=== PATIENT | female | born 1950 | race Asian ===

== ENCOUNTER 2018-08-22 14:00 | Observation (INO) | payer BC, MEDICARE, OTHER ==
[2018-08-22] MEDS: NITROGLYCERIN 2% 1 GM OINT PKT TD (17:48)
[2018-08-22 18:02] LABS: ADD MAN DIFF? NO
[2018-08-22 18:20] LABS: BASOPHIL # 0.1 10^3/ul (0.0-0.1); BASOPHILS % 0.9 % (0.0-2.0); EOSINOPHILS # 0.1 10^3/ul (0.0-0.5); EOSINOPHILS % 2.2 % (0.0-7.0); HEMATOCRIT 43.6 % (37.0-47.0); HEMOGLOBIN 14.6 g/dl (12.0-16.0); LYMPHOCYTES # 2.3 10^3/ul (0.8-2.9); LYMPHOCYTES % 39.1 % (15.0-51.0); MEAN CORPUSCULAR HEMOGLOBIN 30.7 pg (29.0-33.0); MEAN CORPUSCULAR HGB CONC 33.5 g/dl (32.0-37.0); MEAN CORPUSCULAR VOLUME 91.8 fl (82.0-101.0); MEAN PLATELET VOLUME 9.9 fl (7.4-10.4); MONOCYTE # 0.4 10^3/ul (0.3-0.9); MONOCYTES % 6.7 % (0.0-11.0); NEUTROPHILS % 50.6 % (39.0-77.0); PLATELET COUNT 307 10^3/UL (140-415); RED BLOOD COUNT 4.75 10^6/ul (4.20-5.40); RED CELL DISTRIBUTION WIDTH 11.7 % (11.5-14.5)
[2018-08-22 18:20] LABS: WHITE BLOOD COUNT 5.8 10^3/ul (4.8-10.8)
[2018-08-22 18:51] LABS: ANION GAP 10 (5-13); BLOOD UREA NITROGEN 18 mg/dl (7-20); CALCIUM 9.8 mg/dl (8.4-10.2); CARBON DIOXIDE 26 mmol/L (21-31); CHLORIDE 107 mmol/L (97-110); Estimated GFR > 60 mL/min (>60); GLUCOSE 77 mg/dl (70-220); SODIUM 143 mmol/L (135-144)
[2018-08-22 19:03] LABS: TROPONIN-I < 0.012 ng/ml (0.000-0.120)
[2018-08-22] MEDS ORDERED: ACETAMINOPHEN 325 MG TAB PO ×2 (20:00→23:30)
[2018-08-22] MEDS ORDERED: ONDANSETRON 4 MG INJ IV (20:00)
[2018-08-22] MEDS ORDERED: NACL 0.9% 3 ML SYG IV (23:30)
[2018-08-22] MEDS ORDERED: NITROGLYCERIN (SL) 0.4 MG TAB SL (23:30)
[2018-08-22] MEDS ORDERED: ALBUTEROL/IPRATROPIUM (NEB) 3 ML AMP HHN (23:30)
[2018-08-23 00:29] LABS: CREATINE KINASE 53 IU/L (23-200)
[2018-08-23 00:41] LABS: CK INDEX 1.1; CK-MB 0.57 ng/ml (0.0-2.4); TROPONIN-I < 0.012 ng/ml (0.000-0.120)
[2018-08-23] MEDS ORDERED: METOPROLOL 5 MG INJ (01:08)
[2018-08-23] MEDS: HYDROCODONE/APAP (5/325) TAB PO (01:41)
[2018-08-23 06:39] LABS: ADD MAN DIFF? NO
[2018-08-23 06:46] LABS: BASOPHIL # 0.1 10^3/ul (0.0-0.1); BASOPHILS % 1.1 % (0.0-2.0); EOSINOPHILS # 0.2 10^3/ul (0.0-0.5); EOSINOPHILS % 4.1 % (0.0-7.0); HEMATOCRIT 41.5 % (37.0-47.0); LYMPHOCYTES # 1.4 10^3/ul (0.8-2.9); LYMPHOCYTES % 30.7 % (15.0-51.0); MEAN CORPUSCULAR HEMOGLOBIN 30.2 pg (29.0-33.0); MEAN CORPUSCULAR HGB CONC 33.7 g/dl (32.0-37.0); MEAN CORPUSCULAR VOLUME 89.4 fl (82.0-101.0); MONOCYTE # 0.4 10^3/ul (0.3-0.9); MONOCYTES % 8.6 % (0.0-11.0); NEUTROPHIL # 2.6 10^3/ul (1.6-7.5); NEUTROPHILS % 55.1 % (39.0-77.0); PLATELET COUNT 301 10^3/UL (140-415); RED BLOOD COUNT 4.64 10^6/ul (4.20-5.40); RED CELL DISTRIBUTION WIDTH 11.8 % (11.5-14.5)
[2018-08-23 06:46] LABS: WHITE BLOOD COUNT 4.7 10^3/ul (4.8-10.8)
[2018-08-23 07:05] LABS: ALANINE AMINOTRANSFERASE 26 IU/L (13-69); ALBUMIN 3.9 g/dl (3.3-4.9); ALBUMIN/GLOBULIN RATIO 1.39; ALKALINE PHOSPHATASE 85 IU/L (42-121); ANION GAP 8 (5-13); ASPARTATE AMINO TRANSFERASE 26 IU/L (15-46); BILIRUBIN,INDIRECT 0.4 mg/dl (0-1.1); BILIRUBIN,TOTAL 0.4 mg/dl (0.2-1.3); BLOOD UREA NITROGEN 23 mg/dl (7-20); CALCIUM 9.4 mg/dl (8.4-10.2); CARBON DIOXIDE 28 mmol/L (21-31); CHLORIDE 108 mmol/L (97-110); CHOL/HDL RATIO 3.5 RATIO; CHOLESTEROL 196 mg/dl (100-200); Estimated GFR > 60 mL/min (>60); GLUCOSE 109 mg/dl (70-220); HDL CHOLESTEROL 56 mg/dl (35-98); LDL CHOLESTEROL,CALCULATED 119 mg/dl; MAGNESIUM 2.3 mg/dl (1.7-2.5); POTASSIUM 4.6 mmol/L (3.5-5.1); SODIUM 144 mmol/L (135-144); TOTAL PROTEIN 6.7 g/dl (6.1-8.1); TRIGLYCERIDES 105 mg/dl (0-149)
[2018-08-23 07:07] LABS: CREATINE KINASE 56 IU/L (23-200)
[2018-08-23 07:15] LABS: CK INDEX 0.9; CK-MB 0.51 ng/ml (0.0-2.4); TROPONIN-I < 0.012 ng/ml (0.000-0.120)
[2018-08-23] MEDS: LEVOTHYROXINE 25 MCG TAB PO (07:55)
[2018-08-23] MEDS: ASPIRIN 81 MG TAB PO (08:27)
[2018-08-23] MEDS: AMLODIPINE 5 MG TAB PO (08:28)
[2018-08-23] MEDS: LOSARTAN 50 MG TAB PO (08:29)
[2018-08-23] MEDS: ENOXAPARIN 40 MG/0.4 ML SYG SC (09:28)
[2018-08-23] MEDS: METOPROLOL 25 MG TAB PO (10:41)
[2018-08-23] MEDS: IOHEXOL 300MG/ML 150 ML BTL (12:14)
[2018-08-23] MEDS: SOD CHLORIDE 0.9% 100 ML (12:14)
[2018-08-23] MEDS: NITROGLYCERIN AEROSOL (4.9 GM) (12:55)
[2018-08-24 06:23] LABS: ADD MAN DIFF? NO
[2018-08-24 06:33] LABS: BASOPHIL # 0.1 10^3/ul (0.0-0.1); EOSINOPHILS # 0.2 10^3/ul (0.0-0.5); EOSINOPHILS % 3.2 % (0.0-7.0); HEMATOCRIT 41.6 % (37.0-47.0); HEMOGLOBIN 14.3 g/dl (12.0-16.0); LYMPHOCYTES # 1.5 10^3/ul (0.8-2.9); MEAN CORPUSCULAR HEMOGLOBIN 30.6 pg (29.0-33.0); MEAN CORPUSCULAR HGB CONC 34.4 g/dl (32.0-37.0); MEAN CORPUSCULAR VOLUME 88.9 fl (82.0-101.0); MONOCYTE # 0.5 10^3/ul (0.3-0.9); MONOCYTES % 9.3 % (0.0-11.0); NEUTROPHIL # 2.7 10^3/ul (1.6-7.5); NEUTROPHILS % 55.1 % (39.0-77.0); PLATELET COUNT 311 10^3/UL (140-415); RED BLOOD COUNT 4.68 10^6/ul (4.20-5.40); RED CELL DISTRIBUTION WIDTH 11.8 % (11.5-14.5)
[2018-08-24 06:58] LABS: ANION GAP 9 (5-13); BLOOD UREA NITROGEN 25 mg/dl (7-20); CALCIUM 9.5 mg/dl (8.4-10.2); CARBON DIOXIDE 25 mmol/L (21-31); CHLORIDE 108 mmol/L (97-110); CREATININE 0.89 mg/dl (0.44-1.00); Estimated GFR > 60 mL/min (>60); GLUCOSE 103 mg/dl (70-220); MAGNESIUM 2.2 mg/dl (1.7-2.5); PHOSPHORUS 4.4 mg/dl (2.5-4.9); POTASSIUM 4.1 mmol/L (3.5-5.1); SODIUM 142 mmol/L (135-144)
[2018-08-24] MEDS: LEVOTHYROXINE 25 MCG TAB PO (07:19)
[2018-08-24] MEDS: ASPIRIN 81 MG TAB PO (08:17)
[2018-08-24] MEDS: LOSARTAN 50 MG TAB PO (08:17)
[2018-08-24] MEDS: AMLODIPINE 5 MG TAB PO (08:18)
[2018-08-24] MEDS: ENOXAPARIN 40 MG/0.4 ML SYG SC (08:24)
== END 2018-08-24 14:00 | disposition home or self-care (01) ==
LOC: E/R 14:00 → 6WM 19:57
DX: R07.89 Other chest pain (principal); I10 Essential (primary) hypertension; E03.9 Hypothyroidism, unspecified; Z85.3 Personal history of malignant neoplasm of breast; K21.9 Gastro-esophageal reflux disease without esophagitis; Z92.21 Personal history of antineoplastic chemotherapy; Z92.3 Personal history of irradiation; Z82.49 Family history of ischemic heart disease and other diseases of the circulatory system
CPT/HCPCS: 36415; 71045; 75574; 80048; 80053; 80061; 82550; 82553; 83036; 83735; 84100; 84443; 84484; 85025; 93005; 93306; 99285-25; G0378